=== PATIENT | female | born 1995 | race American Indian/Alaskan Native ===

== ENCOUNTER 2018-03-15 22:40 | Emergency (ER) | payer MEDICAID, OTHER ==
[2018-03-15 22:55] VITALS: BP 126/73
[2018-03-15] MEDS: Ketorolac 60 MG/2 ML SDV IM ONE (23:13)
--- NOTE | 2018-03-15 23:13 | EDM.PDOC ---
ED HPI GENERAL MEDICAL PROBLEM - General Chief Complaint: Flank Pain Stated Complaint: RIBS HURT/HURT ON TRAMPOLINE Time Seen by Provider: 03/15/18 22:50 Source of Information: Reports: Patient History Limitations: Reports: No Limitations - History of Present Illness INITIAL COMMENTS - FREE TEXT/NARRATIVE: 22-year-old female was jumping on a trampoline earlier today and "jumped too high" and strained her ribs bilaterally. She did not fall or strike her chest wall. Now it hurts to breathe because of tenderness in the chest wall laterally and in the flank area especially on the left side. No shortness of breath no abdominal pain. She has not taking anything for pain because her mom won't let her take ibuprofen because she takes "too much". Onset: Sudden (7 or 8 hours ago while jumping on the trampoline) Severity: Mild Worsens with: Reports: Other (Breathing), Movement bilateral rib pain Pain Score (Numeric/FACES): 10 - Related Data Allergies Allergy/AdvReac Type Severity Reaction Status Date / Time No Known Allergies Allergy Verified 03/15/18 22:54 Home Meds: Home Meds NK [No Known Home Meds] 10/20/13 [History] Past Medical History - Past Health History Medical/Surgical History: Denies Medical/Surgical History Social & Family History - Tobacco Use Smoking Status *Q: Current Every Day Smoker Years of Tobacco use: 5 Packs/Tins Daily: 0.5 Second Hand Smoke Exposure: No - Caffeine Use Caffeine Use: Reports: Soda - Recreational Drug Use Recreational Drug Use: No ED ROS GENERAL - Review of Systems Review Of Systems: See Below Constitutional: Denies: Fever, Chills HEENT: Reports: No Symptoms Respiratory: Reports: Pleuritic Chest Pain. Denies: Shortness of Breath, Cough Cardiovascular: Denies: Palpitations GI/Abdominal: Denies: Abdominal Pain, Nausea, Vomiting ED EXAM, GENERAL - Physical Exam Exam: See Below Exam Limited By: No Limitations General Appearance: Alert, No Apparent Distress Head: Atraumatic Neck: Supple, Non-Tender Respiratory/Chest: No Respiratory Distress, Lungs Clear, Other (She reacts with tenderness to palpation of the left flank area and lateral chest wall bilaterally. There is no crepitus, asymmetry or bruising.) Neurological: Alert, Oriented Psychiatric: Normal Mood, Flat Affect Skin Exam: Warm, Dry Course - Vital Signs Last Recorded V/S: Last Vital Signs Temp 97.9 F 03/15/18 22:53 Pulse 99 03/15/18 22:53 Resp 18 03/15/18 22:53 BP 126/73 03/15/18 22:53 Pulse Ox 99 03/15/18 22:53 - Orders/Labs/Meds Meds: Medications Discontinued Medications Generic Name Dose Route Start Last Admin Trade Name Keesha PRN Reason Stop Dose Admin Ketorolac Tromethamine 60 mg 03/15/18 23:05 03/15/18 23:13 Toradol IM 03/15/18 23:06 60 mg ONETIME ONE Administration - Re-Assessments/Exams Free Text/Narrative Re-Assessment/Exam: 03/15/18 23:09 Patient has some strain intercostal muscles of the chest wall, was given 60 mg of IM Toradol and 10 additional doses to take 3 doses a day. Increase activity as tolerated and recheck in 2-3 days if not improving. Departure - Departure Time of Disposition: 23:28 Disposition: Home, Self-Care 01 Condition: Good Clinical Impression: Muscle strain of chest wall Qualifiers: Encounter type: initial encounter Qualified Code(s): S29.011A - Strain of muscle and tendon of front wall of thorax, initial encounter - Discharge Information Instructions: Muscle Strain, [id number] Referrals: PCP,None [Primary Care Provider] - Forms: ED Department Discharge Care Plan Goals: Starting tomorrow take 1 dose of pain medication every 6-8 hours until gone. Ice to sore areas may help the next 2 days, and increase activity as tolerated. Recheck in 2-3 days if not improving satisfactorily, or return sooner if worsening such as increasing shortness of breath or fever.
== END 2018-03-15 23:29 | disposition home or self-care (01) ==
LOC: JP.ED 22:40
DX: S29.011A Strain of muscle and tendon of front wall of thorax, initial encounter (principal); F17.210 Nicotine dependence, cigarettes, uncomplicated; Y93.44 Activity, trampolining
CPT/HCPCS: 96372; 99284; J1885